=== PATIENT | female | born 1970 | race Caucasian/White ===

== ENCOUNTER 2020-05-19 13:39 | Outpatient (REF) | payer OTHER, SELFPAY | END 2020-05-19 13:40 | disposition home or self-care (01) | LOC: HO.LAB 13:39 | PROVIDERS: Visit Provider Internal Medicine | DX: Z20.828 Contact with and (suspected) exposure to other viral communicable diseases (principal) | CPT/HCPCS: C9803; U0003 ==

== ENCOUNTER 2022-06-16 11:12 | Outpatient (REF) | payer OTHER, SELFPAY ==
[2022-06-16 12:00] LABS: COVID-19 Test Positive (Negative); IDNOW Serial# 16C4AD1C
== END 2022-06-16 11:13 | disposition home or self-care (01) ==
LOC: HO.LAB 11:12
PROVIDERS: Visit Provider Internal Medicine
DX: Z20.822 Contact with and (suspected) exposure to COVID-19 (principal)
CPT/HCPCS: 87635; C9803

== ENCOUNTER 2024-07-01 00:23 | Emergency (ER) | payer OTHER, SELFPAY ==
[2024-07-01 00:29] VITALS: BP 183/105; PULSE 88; RESP 20; TEMP 36.7; O2SAT 97; BMI 44.6
--- NOTE | 2024-07-01 01:55 | ED.GENADULT ---
HPI - General Adult General Chief complaint: General Medical Stated complaint: swollen lip Time Seen by Provider: 07/01/24 01:30 Source: patient, RN notes reviewed and old records reviewed Mode of arrival: ambulatory Limitations: no limitations (Patient declined laboratory associate and reported that she understood everything that was being spoken) History of Present Illness ED Provider: Crista GIBBS narrative: 53-year-old female presents for evaluation of fluid-filled blisters to her lip. She reports that she woke up with the symptoms this morning. She reported numerous blisters that were fluid-filled that popped. She still has some small blisters that are not actively draining She denies any known history of similar cold sores or herpes simplex virus She reports using a look loss from a year ago yesterday and is concerned that may have been a reaction to this. Your symptoms have improved dramatically since this morning. She has no other complaints or concerns at this time. The blisters are painful and she describes them as burning Related Data Previous Rx's ?Medication ?Instructions ?Recorded valacyclovir 1 gram tablet 1,000 mg PO TID #21 tabs 07/01/24 Allergies Allergy/AdvReac Type Severity Reaction Status Date / Time No Known Allergies Allergy Unverified 07/01/24 00:31 Review of Systems Constitutional: Constitutional: Denies anorexia, Denies chills and Denies fever(s) Eyes: Eyes: Denies blurry vision ENT: Reports lip swelling and Reports mouth lesions Cardiovascular: Cardiovascular: Denies chest pain and Denies dyspnea Respiratory: Respiratory: Denies cough and Denies dyspnea Gastrointestinal: Gastrointestinal: Denies abdominal pain, Denies nausea and Denies vomiting Integumentary/Breasts: Skin/Breast: Denies rash Allergic/Immunologic: Allergic/Immunologic: Reports lip swelling PMFSH Social History Social History Advance Directives: No Advance Directives Information Provided: Yes Physical Exam ED Vital Signs: Vital Signs - 24 hr 07/01/24 00:29 Temperature 98.0 F Pulse Rate 88 Respiratory Rate 20 Blood Pressure 183/105 H Pulse Oximetry 97 Oxygen Delivery Method Room Air BMI result Body Mass Index 44.6 Const General: healthy appearing, comfortable, no acute distress, alert and awake Nutritional Appearance: well nourished Orientation/consciousness: patient oriented x3 HENMT Other: There are numerous tiny a fluid-filled vesicles inferior to the lower lip in the inside of the upper lip. Head: Yes normocephalic and Yes atraumatic Eyes Eyelids: Yes eyelids normal Conjunctivae: conjunctivae normal Sclerae: sclerae normal Corneas: corneas normal Pupils: Equal, round and reactive pupils present EOM: EOMs intact bilaterally Neck Neck: Yes full ROM Resp Effort & Inspection: normal respiratory effort, able to speak in complete sentences and not labored Skin General skin exam: elasticity normal Neuro General: patient oriented x3 Cranial nerves: Yes Equal, round and reactive pupils present and Yes Bilaterally intact EOM present Cognition (Neuro): normal cognition Extrem Other: Moving all extremities well without any obvious deformities Medical Decision Making Medical Decision Making MDM Narrative: Patient's physical/blisters were consistent with herpes simplex virus. A herpes symptoms culture was performed, she was started on valacyclovir and she has a cold sore cream that I advised her to start using. Differential Diagnosis Differential Diagnoses: The differential diagnosis associated with the presentation includes Herpes simplex virus Cold sore Impetigo Shingles less likely Discharge Plan Discharge Clinical Impression: Cold sore Patient Disposition: Home, Self-Care Instructions: Oral Herpes Simplex Virus Infections (ED) Additional Instructions: Your symptoms are consistent with cold sores which could be attributed to the herpes virus. You were swabbed for a herpes culture You may use the cold sore ointment that you have with you. We will call you if the culture results positive Take valacyclovir 3 times a day for 1 week Prescriptions: New valacyclovir 1 gram tablet 1,000 mg PO TID Qty: 21 0RF Print Language: Macedonian
[2024-07-01 02:25] VITALS: BP 179/103; PULSE 78; RESP 16; TEMP 36.6; O2SAT 99
[2024-07-01 02:31] VITALS: BP 179/103; PULSE 78; RESP 16; TEMP 36.6; O2SAT 99
== END 2024-07-01 02:42 | disposition home or self-care (01) ==
PROVIDERS: Physician Assistant; Emergency Provider Emergency Medicine; PCP Pediatrics
DX: B00.1 Herpesviral vesicular dermatitis (principal)
CPT/HCPCS: 87255; 99283; 99284

== ENCOUNTER 2024-07-13 05:28 | Emergency (ER) | payer OTHER, SELFPAY ==
--- NOTE | ~2024-07-13 | XR_ITS ---
CLINICAL HISTORY: cough 2 view chest x-ray Comparison: CR - CHEST 2 VIEWS [id number] - 11/17/2010 03:40 PM EDT Findings: The lungs are clear. Normal size heart. No acute fracture. IMPRESSION: 1. No acute findings. This document has been electronically signed by: Juan Alberto Hankins MD on 07/13/2024 06:26:17
[2024-07-13 05:41] VITALS: BP 163/103; PULSE 93; RESP 16; TEMP 37; O2SAT 96; BMI 43.4
--- NOTE | 2024-07-13 06:17 | MHC.EDTECH ---
patient has uncooperative attitude and refuses covid/flu/rsv swab at this time because she does not like how far up the nose it goes
[2024-07-13 06:31] LABS: IDNOW Serial# 58CA691E; Strep A Nucleic Acid Negative (Negative)
[2024-07-13 07:58] LABS: Influenza A PCR NEGATIVE (Negative); Influenza B PCR NEGATIVE (Negative); Resp Syncy Virus RNA Qual PCR NEGATIVE (Negative); SARS COV2 PCR INHOUSE NEGATIVE (Negative)
--- NOTE | 2024-07-13 09:37 | ED_ITS ---
HPI - URI/Sore Throat General Chief Complaint: Upper Respiratory Symptoms Stated Complaint: sore throat Time Seen by Provider: 07/13/24 09:06 Source: patient, RN notes reviewed and old records reviewed Mode of arrival: ambulatory History of Present Illness ED Provider: Patricia Cunningham PA-C HPI Narrative: 53-year-old female with past medical history HTN presenting to the ED complaining of sore throat, rhinorrhea, productive cough of green/yellow sputum with blood tinge, nausea x4 days. Admits to sick contacts. Denies travel, fever, ear pain, difficulty or inability to swallow, chest pain, shortness of breath Related Data Previous Rx's ?Medication ?Instructions ?Recorded valacyclovir 1 gram tablet 1,000 mg PO TID #21 tabs 07/01/24 benzonatate 100 mg capsule 100 mg PO TID PRN cough #14 caps 07/13/24 prednisone 20 mg tablet 20 mg PO DAILY 5 days #5 tabs 07/13/24 Allergies Allergy/AdvReac Type Severity Reaction Status Date / Time No Known Allergies Allergy Verified 07/13/24 05:44 Review of Systems Review of Systems: Yes all other systems are reviewed and are negative Constitutional: Constitutional: Reports as per [facility] Past Medical History Attestation statement: The following information was validated with the patient. Source: old records reviewed Social History Social History Advance Directives: No Advance Directives Information Provided: No Do you have a plan to hurt others: No Plan Physical Exam Vital Signs: Vital Signs: Last Vital Signs Temp 98.6 F 07/13/24 05:41 Pulse 93 07/13/24 05:41 Resp 16 07/13/24 05:41 BP 163/103 H 07/13/24 05:41 Pulse Ox 96 07/13/24 05:41 O2 Del Method Room Air 07/13/24 05:41 BMI result Body Mass Index 43.4 Const: General: cooperative, healthy appearing and no acute distress Orientation/consciousness: patient oriented x3 Limitations: no limitations HEENT: Head: Yes normal to inspection and Yes atraumatic Ears: hearing grossly normal bilaterally General nose exam: Normal external nose present Face and sinus: Yes normal facial exam Mouth: Normal oral and palatal mucosa present and no drooling Throat: Yes posterior oropharynx normal, Yes tonsils normal, Yes uvula midline, No uvula laterally displaced and No uvular edema Eyes: General: appearance normal, both eyes and all related structures EOM: EOMs intact bilaterally Neck: Neck: Yes normal visual inspection and Yes no meningeal signs Resp: Effort & Inspection: normal respiratory effort and no respiratory distress Auscultation: clear to auscultation bilaterally, normal I/E ratio, no rhonchi and no wheezes Cardio: Rate: regular rate Heart sounds: S1 normal heart sound present and S2 normal heart sound present Skin: Rashes: no rashes Wounds: no wounds Neuro: General: patient oriented x3, tone normal and no meningeal signs Cranial nerves: Yes CN's II-XII intact bilaterally Gait exam (Neuro): Normal gait present Extrem: General: Yes normal to inspection Course Course Course Narrative: -[id number]--viral testing and rapid strep negative -CXR unremarkable Discussed with patient recommendation of prednisone 40 mg daily x5 days, patient hesitant to take any medications, agreeable to take prednisone 20 mg. - Results discussed with patient including worrisome signs and symptoms and strict return precautions, and when to return to the emergency department. They verbalized understanding and feel safe for discharge at this time. Medical Decision Making Medical Decision Making MDM Narrative: 53-year-old female with past medical history HTN presenting to the ED complaining of sore throat, rhinorrhea, productive cough of green/yellow sputum with blood tinge, nausea x4 days. On exam hypertensive, NAD, nontoxic appearing, physical exam unremarkable, lungs CTA, oropharynx WNL. Concern for viral illness vs pneumonia vs bronchitis. Lower suspicion for PE/ACS, dissection or DVT. No evidence of [employer]/retropharyngeal abscess Plan: Viral testing, rapid strep, CXR Please refer to course for remaining clinical decision making, interpretation of labs/imaging results, and discussions with consultants and/or family members. Differential Diagnosis Differential Diagnoses: The differential diagnosis associated with the presentation includes As above Admission/Observation Consideration of admission/observation: Escalation of care including admission/observation considered Lab Data [facility] Lab Attestation statement: I reviewed the patient's lab results. Labs: Lab Results 07/13/24 07/13/24 Range/Units 06:13 07:13 Influenza Type A (PCR) NEGATIVE (Negative) Influenza Type B (PCR) NEGATIVE (Negative) RSV RNA Qual (PCR) NEGATIVE (Negative) SARS-CoV-2 RNA (RT-PCR) NEGATIVE (Negative) S. pyogenes GrpA LIA Negative (Negative) Independent Interpretation I performed an independent interpretation of an: Plain X-Ray Radiology Impression Discussion of test interpretation with radiology: I have reviewed the radiologist's reading. External Record Review External record reviewed: Inpatient record, Office record, Outpatient record, Prior outpatient labs, Prior outpatient radiology, Primary care record and Outside ED record Tests considered The following testing was considered but not selected: As above Prescription Management I considered prescription management with: Pain Medication and Antibiotic Chronic Conditions Patient?s care impacted by: Hypertension Discharge Plan Discharge Clinical Impression: Bronchitis, Upper respiratory infection Patient Disposition: Home, Self-Care Instructions: Acute Bronchitis (ED), Viral Syndrome (ED) Additional Instructions: You tested negative for COVID, flu, RSV and your x-ray does not show pneumonia You likely have bronchitis and a virus Prednisone as a steroid please take as prescribed Tesemanuel Blancas for cough, take as needed Please have close follow up with her doctor If her symptoms persist or worsen you have constant worsening fevers, shortness breath, chest pain return to the ED Prescriptions: New prednisone 20 mg tablet 20 mg PO DAILY 5 Days Qty: 5 0RF benzonatate 100 mg capsule 100 mg PO TID PRN (Reason: cough) Qty: 14 0RF No Action valacyclovir 1 gram tablet 1,000 mg PO TID Qty: 21 0RF Referrals: Naomi Artis MD [Primary Care Provider] - 5 days Print Language: English
[2024-07-13 10:04] VITALS: BP 163/103; PULSE 93; RESP 16; TEMP 37; O2SAT 96
== END 2024-07-13 10:35 | disposition home or self-care (01) ==
PROVIDERS: Emergency Provider Emergency Medicine; PCP Pediatrics
DX: J06.9 Acute upper respiratory infection, unspecified (principal); J40 Bronchitis, not specified as acute or chronic; J02.9 Acute pharyngitis, unspecified; R05.9 Cough, unspecified; I10 Essential (primary) hypertension; Z03.818 Encounter for observation for suspected exposure to other biological agents ruled out
CPT/HCPCS: 0241U; 71046; 87651; 99282; 99283

== ENCOUNTER → 2024-07-13 05:55 | Outpatient (BNV) | payer OTHER, SELFPAY | PROVIDERS: PCP Pediatrics; Visit Provider Radiology Diagnostic Radiology | DX: R05.9 Cough, unspecified (principal) | CPT/HCPCS: 71046 ==

== ENCOUNTER 2025-03-10 04:49 | Emergency (ER) | payer OTHER, SELFPAY ==
[2025-03-10 04:55] VITALS: BP 168/97; PULSE 107; RESP 20; TEMP 36.8; O2SAT 97; BMI 45.0
--- NOTE | 2025-03-10 05:13 | ECG_ITS ---
Test Reason : ABDOMINAL PAIN Blood Pressure : */* mmHG Vent. Rate : 75 BPM Atrial Rate : 75 BPM P-R Int : 174 ms QRS Dur : 104 ms QT Int : 406 ms P-R-T Axes : 48 -8 18 degrees QTcB Int : 453 ms Normal sinus rhythm Normal ECG When compared with ECG of 17-Nov-2010 12:18, No significant changes seen Referred By: Janis Beard Electronically Signed By: Tyrone Hughes
[2025-03-10 05:24] LABS: Hematocrit 39.6 % (37.0-47.0); Hemoglobin 13.6 g/dl (12.0-16.0); Mean Corpuscular HGB Conc 34.3 g/dl (31.0-35.0); Mean Corpuscular Hemoglobin 28.0 pg (27.0-33.0); Mean Corpuscular Volume 81.6 fL (80.0-98.0); NRBC Abs Auto 0.000 X10*3/uL (0.0-0.012); NRBC Pct Auto 0.0 /100WBC (0.0-0.2); Platelet Count 299 X10*3/uL (160-400); Red Blood Count 4.85 X10*6/uL (4.20-5.50); White Blood Count 8.4 X10*3/uL (4.8-10.8)
--- NOTE | 2025-03-10 05:33 | ED.ABDPAIN ---
HPI - Abdominal Pain General Chief Complaint: Abdominal Pain Stated Complaint: abd pain Time Seen by Provider: 03/10/25 05:12 Source: patient Mode of arrival: ambulatory Limitations: no limitations History of Present Illness ED Provider: Dr. Janis Beard HPI narrative: 54-year-old female with history of BMI 45, hypertension presenting with epigastric abdominal pain that woke her from sleep today. Admits that she has been eating frequent midnights neck is and has been dealing with his overeating. Feels that this contributed to her symptoms tonight. Admits to nausea but no vomiting. No new medications. Had been feeling well otherwise. Denies fever, chest pain, difficulty breathing, questionable food intake, known sick contacts or recent travel. She does have a gallbladder. No abdominal surgical history. Very anxious about new medications, pathogen exposures. Does not leave the house much. Related Data Previous Rx's ?Medication ?Instructions ?Recorded valacyclovir 1 gram tablet 1,000 mg PO TID #21 tabs 07/01/24 benzonatate 100 mg capsule 100 mg PO TID PRN cough #14 caps 07/13/24 prednisone 20 mg tablet 20 mg PO DAILY 5 days #5 tabs 07/13/24 potassium chloride 20 mEq 20 meq PO DAILY #30 tabs 03/10/25 tablet,extended release (K-Tab) Allergies Allergy/AdvReac Type Severity Reaction Status Date / Time No Known Allergies Allergy Verified 03/10/25 04:59 Review of Systems Review of Systems as per HPI, full review of systems performed and negative but for the above mentioned pertinent positives and negatives. [facility] Social History Social History Smoked in Last 30 Days: No Use of substances other than those prescribed or required for medical reasons: No Advance Directives: No Advance Directives Information Provided: Yes Patient : No Physical Exam ED Exam Exam: GENERAL: Anxious, NAD. SKIN: Normal skin color for ethnicity, warm, dry, intact, no rashes noted. HEENT: Normocephalic, atraumatic, no stridor, posterior oropharynx nonerythematous, dentition intact, EOMI. NECK: Soft, supple, full ROM, midline structures nontender, no step-offs, no deformities, no lymphadenopathy. CHEST: Heart regular rhythm, no murmurs, symmetric chest rise and fall, no crepitus. PULMONARY: Clear to auscultation bilaterally, no labored breathing, no wheezes/rhales/ rhonchi. ABDOMINAL: Soft, nondistended, nontender, positive bowel sounds in all quadrants. : Deferred. MUSCULOSKELETAL: Normal tone, full range of motion, no deformities, no peripheral edema. NEURO: Alert and oriented x3, CN II through XII intact, equal strength and sensation bilateral upper and lower extremities, no focal neurologic deficits. PSYCHIATRIC: Anxious affect, fluid, tangential speech, good eye contact and appropriate demeanor. Vital Signs: Vital Signs - 24 hr 03/10/25 04:55 Temperature 98.2 F Pulse Rate 107 H Respiratory Rate 20 Blood Pressure 168/97 H Pulse Oximetry 97 Oxygen Delivery Method Room Air BMI result Body Mass Index 45.0 Medical Decision Making Medical Decision Making [facility] Narrative: This patient presents today with a chief complaint of abdominal pain. Differential diagnosis for this patient is broad.? It includes appendicitis, cholecystitis, bowel obstruction, diverticulitis, peptic ulcer disease, pyelonephritis, vascular pathology, among many others.? A broad-based workup based on history and physical examination was obtained. ? Patient was given dicyclomine for pain control. ? Blood work and EKG reassuring. Patient and I had a long discussion regarding gastritis, overeating and midnight snacking. I believe this is contributing to her symptoms today. She may also be experiencing biliary colic, though I do not see evidence of cholecystitis on exam, blood work or bedside US. US windows were rather poor secondary to body habitus. Using shared decision making, plan for discharge home to follow-up with primary care and/or specialist.? Patient understands and agrees with plan for discharge.? Discharged home in stable condition. Differential Diagnosis Differential Diagnoses: The differential diagnosis associated with the presentation includes (as above) Admission/Observation Consideration of admission/observation: Escalation of care including admission/observation considered Lab Data [facility] Lab Attestation statement: I reviewed the patient's lab results. 03/10/25 05:17 03/10/25 05:17 Labs: Lab Results 03/10/25 Range/Units 05:17 WBC 8.4 (4.8-10.8) X10*3/uL RBC 4.85 (4.20-5.50) X10*6/uL Hgb 13.6 (12.0-16.0) g/dl Hct 39.6 (37.0-47.0) % MCV 81.6 (80.0-98.0) fL MCH 28.0 (27.0-33.0) pg MCHC 34.3 (31.0-35.0) g/dl RDW 14.1 (11.0-16.0) % Plt Count 299 (160-400) X10*3/uL MPV 9.5 (9.4-12.3) fL Absolute Nucleated RBC 0.000 (0.0-0.012) X10*3/uL Nucleated RBC % (auto) 0.0 (0.0-0.2) /100WBC Sodium 142 (135-145) mmol/L Potassium 3.1 L (3.3-5.1) mmol/L Chloride 100 (96-108) mmol/L Carbon Dioxide 29 (22-29) mmol/L Anion Gap 16 (12-20) BUN 17 H (9-16) mg/dL Creatinine 0.74 (0.5-1.4) mg/dL Estim Creat Clear Calc 111.4 Estimated GFR > 60 Random Glucose 105 (60-115) mg/dL Calcium 9.3 (8.4-10.2) mg/dL Magnesium 2.2 (1.6-2.6) mg/dL Total Bilirubin 0.5 (0.0-1.0) mg/dL AST 70 H (5-31) U/L ALT 114 H (0-31) U/L Alkaline Phosphatase 124 H (39-117) U/L Total Protein 7.3 (6.5-8.0) g/dL Albumin 4.4 (3.5-5.0) g/dL Independent Interpretation I performed an independent interpretation of an: EKG Prescription Management I considered prescription management with: Pain Medication Chronic Conditions Patient?s care impacted by: Hypertension and Other (obesity) Social Determinants Patient?s care significantly limited by Social Determinants of Health including: Low income, Problems related to primary support group and Other Social Determinant of Health Medications Administered Discontinued Medications Generic Name Dose Route Start Last Admin Trade Name Freq PRN Reason Stop Dose Admin Dicyclomine HCl 20 mg 03/10/25 05:13 03/10/25 05:26 Dicyclomine Hcl 10 Mg Capsule PO 03/10/25 05:14 Not Given ONCE ONE Ondansetron HCl 4 mg 03/10/25 05:13 03/10/25 05:26 Ondansetron Odt 4 Mg Tab.Regisbertin MAGGIEU 03/10/25 05:14 Not Given ONCE ONE Discharge Plan Discharge Clinical Impression: Biliary colic, Acute epigastric pain Patient Disposition: Home, Self-Care Instructions: Biliary Colic (ED) Additional Instructions: There is no evidence of infection or significant blockage in your biliary tract today. If you have gallstones, you may need to have your gallbladder taken out eventually. It does not need to be emergently taken out today. Continue taking your flintstone vitamins every day. You may also supplement them with additional potassium pills. Return to the ER with any new or worsening symptoms including: Worsening pain despite medication, fevers greater than 100?, inability to tolerate food or drink, any new symptom that concerns you. Call 911 with any medical emergency. Prescriptions: New potassium chloride [K-Tab] 20 mEq tablet extended release 20 meq PO DAILY Qty: 30 0RF No Action valacyclovir 1 gram tablet 1,000 mg PO TID Qty: 21 0RF prednisone 20 mg tablet 20 mg PO DAILY 5 Days Qty: 5 0RF benzonatate 100 mg capsule 100 mg PO TID PRN (Reason: cough) Qty: 14 0RF Interventions: ED Discharge Assessment Last Done: 03/10/25 06:47 Discharge Date/Time: 03/10/25 06:49 Print Language: Portuguese
[2025-03-10 05:40] LABS: Alanine Aminotransferase 114 U/L (0-31); Albumin Level 4.4 g/dL (3.5-5.0); Alkaline Phosphatase 124 U/L (39-117); Anion Gap 16 (12-20); Aspartate Amino Transferase 70 U/L (5-31); Blood Urea Nitrogen 17 mg/dL (9-16); Calcium 9.3 mg/dL (8.4-10.2); Carbon Dioxide 29 mmol/L (22-29); Chloride 100 mmol/L (96-108); Creatinine Clr Calc Pharmacy 111.4; Estimated Glomerular Filt Rate > 60; Magnesium 2.2 mg/dL (1.6-2.6); Potassium 3.1 mmol/L (3.3-5.1); Sodium 142 mmol/L (135-145); Total Protein 7.3 g/dL (6.5-8.0)
[2025-03-10 06:47] VITALS: BP 150/83; PULSE 96; RESP 18; TEMP 36.8; O2SAT 98
== END 2025-03-10 06:49 | disposition home or self-care (01) ==
PROVIDERS: Emergency Provider Emergency Medicine
DX: K80.50 Calculus of bile duct without cholangitis or cholecystitis without obstruction (principal); R10.13 Epigastric pain; I10 Essential (primary) hypertension; R11.0 Nausea
CPT/HCPCS: 36415; 80053; 83735; 85027; 93005; 99283; 99284

== ENCOUNTER → 2025-03-10 05:13 | Outpatient (BNV) | payer OTHER, SELFPAY | PROVIDERS: Emergency Provider Emergency Medicine; Visit Provider Internal Medicine Cardiovascular Disease | DX: R10.9 Unspecified abdominal pain (principal) | CPT/HCPCS: 93010 ==